=== PATIENT | female | born 1980 | race Caucasian/White ===

== ENCOUNTER 2018-08-27 20:48 | Emergency (ER) | payer SELFPAY ==
[~2018-08-27] VITALS: Ht 152.4 cm; Wt 70.5 kg
[2018-08-27 21:00] VITALS: BP 147/100; PULSE 86; RESP 18; Ht 152.4 cm; Wt 70.5 kg
== END 2018-08-28 04:21 | disposition left against medical advice (07) ==
LOC: FTE 20:48
DX: Z53.21 Procedure and treatment not carried out due to patient leaving prior to being seen by health care provider (principal)
CPT/HCPCS: 93005